=== PATIENT | female | born 1980 | race Caucasian/White ===

== ENCOUNTER → 2021-05-16 | Outpatient (CLI) | payer BC ==
[~2021-05-16] MED LIST: DOCUSATE SODIU250 MG PO; HYDROCODONE-AC1 EACH PO; IBUPROFEN600 MG PO
[2021-05-16 11:21] LABS: HEMOGLOBIN 15.6 gm/dl (12.3-15.3); RED BLOOD COUNT 5.55 M/UL (4.00-5.10); WHITE BLOOD COUNT 6.6 K/UL (4.5-11.0)
== END ==
LOC: OPSV2 09:30
PROVIDERS: Obstetrics & Gynecology
DX: Z01.812 Encounter for preprocedural laboratory examination (principal); N92.0 Excessive and frequent menstruation with regular cycle
CPT/HCPCS: 36415; 81001; 85025

== ENCOUNTER → 2021-05-20 | Day surgery (SDC) | payer BC | END | disposition home or self-care (01) | LOC: OR 06:24 | DX: N92.0 Excessive and frequent menstruation with regular cycle (principal); N94.6 Dysmenorrhea, unspecified; F17.210 Nicotine dependence, cigarettes, uncomplicated; F41.9 Anxiety disorder, unspecified; F32.9 Major depressive disorder, single episode, unspecified; Z20.822 Contact with and (suspected) exposure to COVID-19 | CPT/HCPCS: 84703; C1769; J0690; J1100; J1170; J1642; J1885; J2001; J2250; J2405; J2704; J2710; J3010; J7030; J7120; U0002 ==

== ENCOUNTER → 2021-06-24 | Outpatient (CLI) | payer BC | LOC: KOH-I 10:17 | DX: R50.9 Fever, unspecified (principal) | CPT/HCPCS: 71046 ==